=== PATIENT | female | born 2000 | race Caucasian/White ===

== ENCOUNTER 2025-10-01 10:30 | Emergency (ER) | payer BC, SELFPAY ==
[2025-10-01 10:40] VITALS: BP 142/76
[2025-10-01 11:17] VITALS: BP 122/79
[2025-10-01] MEDS: NSS 1000 IV (11:24)
[2025-10-01 11:33] LABS: Hematocrit 37.6 % (37.0-47.0); Hemoglobin 12.9 g/dL (12.0-16.0); Mean Corp Hgb Conc. 34.3 g/dL (33.0-37.0); Mean Corpuscular Volume 94.0 fL (81.0-99.0); Nucleated Red Blood Cells % 0 %; Platelet Count 267 10^3/uL (130-400); Red Cell Dist. Width 12.2 % (11.5-14.5)
[2025-10-01 11:53] LABS: HCG, Serum Qualitative Screen Negative
[2025-10-01 11:57] LABS: ALT (SGPT) 14 U/L (0-35); AST (SGOT) 20 U/L (14-36); Albumin 4.5 g/dl (3.5-5.0); Alkaline Phosphatase 66 U/L (38-126); Blood Urea Nitrogen 13 mg/dl (7-17); Calcium 9.5 mg/dl (8.4-10.2); Carbon Dioxide 24 mmol/L (22-30); Chloride 108 mmol/L (98-107); Glucose 93 mg/dl (70-99); Potassium 4.1 mmol/L (3.5-5.1); Sodium 139 mmol/L (135-145); Total Protein 7.1 g/dl (6.3-8.2); eGFR > 60.00
--- NOTE | 2025-10-01 11:57 | ED.GENMED ---
History of Present Illness
General
Chief Complaint: Vomiting Blood
Source: patient
Exam Limitations: none
Time Seen by Provider: 10/01/25 11:03
Nursing documentation reviewed up to this point in time: agreed with
History of Present Illness
History of Present Illness:
The patient is a 25-year-old female who presents with hematemesis. She admits to being hungover after drinking 4 martinis last night, vomited 3-4 times today, last time, noted blood and took a picture of it. On her phone is a small red area on
tissue with surrounding non bloody emesis. She and mom at bedside states she has always had 'problems with my stomach'...vomiting weekly over the years. Pt thinks its from anxiety. She also has history of intermittent blood in stools and she states
she is not concerned that it happened once earlier today. No hx hemorrhoids. She has chronic intermittent diarrhea. She has never seen a GI doctor. She reports no SOB or chest pain, no significant abdominal pain or lightheadedness.
Past History
Past History
ED Past Medical History: Arrthythmia (SVT takes Metoprolol), Asthma (takes Singulair) and Psychiatric (Takes Wellbutrin, Buspar, takes Naltrexone she states for 'my weight' denies taking it for drug or alcohol misuse)
ED Past Surgical History: None
Social History
Tobacco: Non-smoker
Alcohol: Occasional ('socially' not every day)
Personal: Single
Living: with family
Employment: Employed
Family History
Family History: Other (Mother with UTIs)
Review of Systems
Review of Systems
Allergies reviewed?: Yes
All Other Systems: ROS reviewed and negative except as documented in HPI and ROS
Constitutional: Denies fever or fatigue
Respiratory: Denies trouble breathing
Cardiac: Denies chest pain
ABD/GI: Reports nausea, vomiting and bloody stools (one today); Denies abdominal pain, diarrhea, constipated, black stools or anorexia
: Reports other (sometimes I go a whole lot (urinate)and sometimes not at all, if I jump or something like that, I'm incontinent (will recommend Urologist). Bilateral breast pain follwed by her [employer] (not new)); Denies dysuria
Musculoskeletal: Reports no symptoms
Skin: Reports no symptoms
Neurological: Reports no symptoms
Psychiatric: Reports anxiety
Phy Exam
Physical Exam
Physical Exam:
GENERAL: No acute distress. A&Ox3.
CONSTITUTIONAL: Afebrile.
EYES: clear, conjunctivae normal
ENMT: moist mucus membranes, Pharynx nl
RESPIRATORY: Regular respirations, nonlabored, lungs with friction rub left mid to lower lung lezama
CARDIOVASCULAR: Regular rate and rhythm, no murmurs, no rubs.
GI: Soft, nontender, normal BS
Rectal: No stool in rectum, tiny joselin with mucus Hematest neg
MUSCULOSKELETAL: Moves with ease. Well perfused.
SKIN: Warm, dry, pink
PSYCH: Normal mood and affect. Well kept, interactive and appropriate
NEUROLOGIC: Awake, alert and oriented. No focal neurological deficits
Course
Orders/Labs/Results
Orders:
Orders
10/01/25 11:23
0.9% Sodium Chloride 1000 ml [Nss] 1,000 ml IV BOLUS
Test Result ONCE
CR Chest - 2 Views Urgent
Comment:
Reason For Exam: cough
10/01/25 11:24
Complete Blood Count/With Diff Urgent
Comprehensive Metabolic Panel Urgent
HCG, Serum Qualitative Screen Urgent
10/01/25 12:57
Acetaminophen [Tylenol] 1,000 mg .ROUTE .STK-MED ONE
Acetaminophen [Tylenol] 1,000 mg PO NOW STA
Abnormal Lab Results
10/01/25
11:24
RBC 4.00 L 10^6/uL
(4.20-5.40)
MCH 32.3 H pg
(27.0-31.0)
MPV 10.6 H fL
(7.4-10.4)
Absolute Monos (auto) 0.7 H 10^3/uL
(0.1-0.6)
Monocytes % 9.9 H %
(1.7-9.3)
Chloride 108 H mmol/L
(98-107)
10/01/25 11:24
10/01/25 11:24
Vital Signs
Initial and Last Documented VS:
Initial Vital Signs
Temp Pulse Resp BP Pulse Ox
97.6 F 89 16 142/76 99
10/01/25 10:40 10/01/25 10:40 10/01/25 10:40 10/01/25 10:40 10/01/25 10:40
Last Documented Vital Signs
Temp Pulse Resp BP Pulse Ox
97.6 F 94 19 113/71 99
10/01/25 10:40 10/01/25 12:59 10/01/25 12:59 10/01/25 13:00 10/01/25 12:03
MDM/Problems Addressed
Differential Diagnosis Includes:
alcohol induced gastritis, PUD, anemia, anxiety GERD, hemorrhoids, Katie Miller tear
MDM/Problems Addressed:
The patient is a 25-year-old female who presents with hematemesis. She admits to being hungover after drinking 4 martinis last night, vomited 3-4 times today, last time, noted blood and took a picture of it. On her phone is a small red area on
tissue with surrounding non bloody emesis. She and mom at bedside states she has always had 'problems with my stomach'...vomiting weekly over the years. Pt thinks its from anxiety. She also has history of intermittent blood in stools and she states
she is not concerned that it happened once earlier today. No hx hemorrhoids. She has chronic intermittent diarrhea. She has never seen a GI doctor. She reports no SOB or chest pain, no significant abdominal pain or lightheadedness.
Afebrile, NAD
Vomited once here, no significant or notable blood but did test heme positive on heme occult.
CBC normal CMP normal
hCG negative
1:45 PM:
Chest x-ray radiology report read: NAD
Discussed findings with patient and her mother, she is stable for discharge.
*Pulse Oximetry
SaO2: 99
Oxygen Mode of Delivery: Room air
Patient hypoxic: no
*Critical Care Note
Total Time (30-74mins, 75-104mins- exclusive of procedures): Not Applicable
ED Attending Note
-
Portions of this chart may have been created with voice recognition software.� Occasional wrong word or��sound alike� substitutions may have occurred due to the inherent limitations of voice recognition software.
Discharge Plan
Departure
Patient Disposition: Home (Routine Discharge)
Date of Disposition: 10/01/25
Time of Disposition: 13:51
Patient with high blood pressure during this ER visit?: No
Condition: Good
Discharge Problem:
Gastritis due to alcohol without hemorrhage
Instructions: Gastritis - ED (DC)
Prescriptions:
No Action
nitrofurantoin monohyd/m-cryst 100 MG capsule
100 mg PO BID Qty: 14 0RF
methylprednisolone [Medrol (Sai)] 4 mg tablets,dose pack
See Rx Instructions .ROUTE .COMPLEX Qty: 21 0RF
Rx Instructions:
orally per package directions
albuterol sulfate [ProAir HFA] 90 mcg/actuation HFA aerosol inhaler
1 puff inhalation Q4HPRN PRN (Reason: shortness of breath) Qty: 8.5 0RF
Referrals:
Marjorie Rosas DO [Active, Urology] - Next open appointment
Heriberto Benitez DO [Active, Gastroenterology] - Next open appointment
Activity Restrictions/Additional Instructions:
As we discussed, nothing worrisome in your workup here today.
Your stomach and esophagus are most likely inflamed due to the alcohol and vomiting.
Return here immediately for increasing blood with vomiting or feeling sicker in any way.
Avoid alcohol
I have provided you the names of a urologist and a GI doctor to use
Interventions
Interventions:
*Risk Screen - Suicide Last Done: 10/01/25 10:36
*General Assessment Last Done: 10/01/25 10:36
*Neglect/Abuse Screening Last Done: 10/01/25 10:36
*ED- Fall Risk Assessment Last Done: 10/01/25 10:36
*ED COVID-19 Vaccine History Last Done: 10/01/25 10:36
*ED Influenza Vaccine History Last Done: 10/01/25 10:36
*Nursing Disposition Last Done: 10/01/25 14:16
DD-Flvecg-Jimrxxpcau Assessment Last Done: 10/01/25 11:25
ED- Cardiac Assessment Last Done: 10/01/25 11:25
ED- Pulmonary Assessment Last Done: 10/01/25 11:25
Discharge Date and Time
Discharge Date/Time: 10/01/25 14:17
Print Language: [email or web address]
[2025-10-01 12:00] VITALS: BP 120/78
[2025-10-01] MEDS: TYLENOL 1000 MG PO (12:58)
[2025-10-01 13:00] VITALS: BP 113/71
== END 2025-10-01 14:17 | disposition home or self-care (01) ==
LOC: EMR 10:30
PROVIDERS: Registered Nurse; EMERGENCY PHYSICIAN Emergency Medicine; FAMILY PHYSICIAN Family Medicine
DX: K29.20 Alcoholic gastritis without bleeding (principal); J45.909 Unspecified asthma, uncomplicated
CPT/HCPCS: 99284; 96360; 71046; 80053; 84703; 85025